=== PATIENT | female | born 1975 | race Two or more races ===

== ENCOUNTER 2020-10-12 14:06 | Outpatient (CLI) | payer OTHER | END 2020-10-12 14:43 | disposition home or self-care (01) | LOC: MAMO-SONO 14:06 | PROVIDERS: ATTEND Obstetrics & Gynecology | DX: Z12.31 Encounter for screening mammogram for malignant neoplasm of breast (principal); N64.59 Other signs and symptoms in breast; R10.2 Pelvic and perineal pain ==